=== PATIENT | female | born 1945 | race Hispanic/Latino ===

== ENCOUNTER 2018-06-20 19:23 | Emergency (ER) | payer MEDICARE ==
[~2018-06-20] VITALS: Ht 157.5 cm; Wt 83.9 kg
--- OUTSIDE RECORDS SUMMARY | 2018-06-20 19:26 | XMS REPORT | Clinical Summary ---
Author Author [facility] Address Unknown Phone Unavailable Care Team Providers Care Child Care Group Leader Name Role Phone Tito Wade MD PCP Unavailable Allergies Comments Active Allergy Reactions Severity Noted Date Clindamycin Itching Medium 11/08/2014 Dizzy Levofloxacin Other (See High 11/08/2014 Comments) Medications End Date Status Medication Sig Dispensed Refills Start Date Active metFORMIN (GLUCOPHAGE) Take 1,000 mg 0 1000 MG tablet by mouth 2 (two) times daily with breakfast and dinner. Active lisinopril Take 20 mg by 0 (PRINIVIL,ZESTRIL) 20 MG mouth daily. tablet Active glipiZIDE (GLUCOTROL) 5 Take 10 mg by 0 MG tablet mouth daily . Active simvastatin (ZOCOR) 40 MG Take 40 mg by 0 tablet mouth nightly. Active insulin glargine (LANTUS) Inject 15 0 100 unit/mL injection Units subcutaneousl y nightly Use as directed . Active omeprazole (PRILOSEC) 20 Take 20 mg by 0 MG capsule mouth daily. Active insulin lispro (HUMALOG) Inject 5 0 100 unit/mL injection Units subcutaneousl y 3 (three) times daily before meals. Active pen needle, diabetic 31 USE 2 PER DAY 0 gauge x 3/16" Ndle DIRECTED. 6 Active fexofenadine (VANI) 1 tablet. 0 180 MG tablet 6 Active blood sugar diagnostic Check blood 0 Strp sugar twice a 5 day. Active dnagjrjn-mpkf-dteanow Take by 0 gluconat (CENTRUM) 9 mg mouth. iron/15 mL Liqd liquid Active levothyroxine (SYNTHROID, TAKE 1 TABLET 0 LEVOTHROID) 50 MCG tablet BY MOUTH 6 EVERY MORNING ON AN EMPTY STOMACH 1 HOUR PRIOR TO BREAKFAST. Active magnesium oxide 500 mg 1 tablet. 0 Tab 6 Active MULTIVITS,CA,MINERALS/IRO 1 tab daily. 0 N/FA (ONE-A-DAY WOMENS FORMULA ORAL) Active ranitidine (ZANTAC) 300 300 mg. 0 MG tablet 6 Active glipiZIDE (GLUCOTROL XL) TAKE 1 TABLET 0 10 MG 24 hr tablet EVERY MORNING 6 WITH BREAKFAST FOR DIABETES. Active insulin lispro (HUMALOG) 5 Units. 0 100 unit/mL InPn 5 Active insulin glargine 100 INJECT 40 0 unit/mL (3 mL) InPn UNITS UNDER 5 SKIN EVERY NIGHT. MAY INCREASE DOSE DIRECTED BY DOCTOR. MAX DOSE: 100 UNITS. Active lisinopril TAKE 1 TABLET 0 (PRINIVIL,ZESTRIL) 10 MG BY MOUTH 6 tablet DAILY FOR HYPERTENSION. Active metFORMIN (GLUCOPHAGE) TAKE 1 TABLET 0 1000 MG tablet BY MOUTH 6 TWICE A DAY WITH MEALS. Active simvastatin (ZOCOR) 40 MG TAKE 1 TABLET 0 tablet BY MOUTH 6 EVERY DAY AT 5:00 PM. Active Problems Problem Noted Date Kidney stone 11/08/2014 UTI (urinary tract infection) 11/08/2014 Acute kidney insufficiency 11/08/2014 HTN (hypertension) 11/08/2014 Diabetes mellitus, type II 11/08/2014 Hyperlipidemia, mixed 11/08/2014 OAB (overactive bladder) 11/08/2014 Chronic kidney disease (CKD), stage III (moderate) 01/12/2012 Absence of kidney 06/10/2010 Family History Medical History Relation Name Comments Cancer Mother pancreatic Cancer Sister colon Relation Name Status Comments Mother Sister Sister Social History Date Tobacco Use Types Packs/Day Years Used Never Smoker Alcohol Use Drinks/Week oz/Week Comments No Sex Assigned at Date Recorded Not on file Industry Job Start Date Occupation Not on file Not on file Not on file Travel End Travel History Travel Start No recent travel history available. Last Filed Vital Signs Not on file Plan of Treatment Not on file Implants Device Identifier Shelf Expiration Date Model / Serial / Lot Implanted Type Area Manufactur er 08/29/2016 [id number] / / [id number] Stent,Uret F/G Contour Injection Uro Stent N/A: Ureter [employer] 6.0/24 - [id number] [employer]ENT[employer] Implanted: Qty: 1 on 11/09/2014 by Art Parra MD 05/29/2016 [id number] / / [id number] Stent,Uret F/G Contour Injection Uro Stent Left: Ureter [employer] 6.0/22 - [id number] SCIENTIFIC Implanted: Qty: 1 on 11/17/2014 by Randell Giles MD Results Not on fileafter 06/19/2017 Insurance Payer Benefit Subscriber ID Type Phone Address Plan / Group [employer] K[employer]ARE xxxxxxxxxxx MEDICARE ADV AETNA - MGD CARE AETNA xxxxxxxxxx Comm INDEMNITY NON CONTR Advance Directives For more information, please contact: [facility] [address] [place] [address] Date Inactivated Comments Code Status Date Activated 11/10/2014 5:35 PM Full Code 11/08/2014 9:04 PM This code status was determined by: Patient
[2018-06-20] MEDS ORDERED: TETANUS/DIPHTHERIA TOX ADULT 0.5 ML SYR IM ONE (19:45)
--- NOTE | 2018-06-20 21:36 | Diagnostic Imaging Report ---
History: Trauma, fall. Comparison studies: None Technique: Axial images were obtained through the cervical region.. Coronal and sagittal images reconstructed from the axial data. Dose modulation, iterative reconstruction, and/or weight based adjustment of the mA/kV was utilized to reduce the radiation dose to as low as reasonably achievable. Intravenous contrast: None Findings: Fractures: None. Soft tissue injuries: None. Atlantoaxial articulation: Intact. Alignment: Loss of normal cervical lordosis is either positional or due to muscle spasm. No scoliosis. Cervicomedullary junction: No abnormalities. The foramen magnum is patent. Soft tissues: Incidental 1.9 x 1.4 cm hypodense nodule in left lobe of thyroid gland. Vertebrae: No fractures, infection or neoplasm. Degenerative changes: Moderate degenerative changes in the anterior atlantodental joint. C5-C6: Mild left foraminal stenosis due to facet and uncovertebral arthrosis. C6-C7: Posterior disc osteophyte complex without significant canal stenosis. C7-T1: Moderate to severe left foraminal stenosis due to facet and uncovertebral arthrosis. IMPRESSION: 1. No acute cervical spine fracture or dislocation. Loss of normal cervical lordosis is either positional or due to muscle spasm. 2. Ligament, spinal cord and or vascular abnormalities cannot be excluded on the basis of this examination. 3. Cervical spondylosis as detailed above. Signed by: Dr. Kayli Navarro M.D. on 06/20/2018 9:33 PM
--- NOTE | 2018-06-20 21:44 | Diagnostic Imaging Report ---
Left complete knee. CPT CODE: 66894. INDICATION: Fall COMPARISON: None FINDINGS: No evidence of acute fracture or dislocation. Mild narrowing of the medial and lateral compartments with bilateral chondrocalcinosis. Mild prominence of the tibial spines. The patella is intact and normally situated. No joint effusion. Vascular calcifications throughout the arterial structures. IMPRESSION: No acute traumatic pathology. Degenerative changes and chondrocalcinosis as described above. Signed by: Dr. Angela Otero MD on 06/20/2018 9:41 PM
--- NOTE | 2018-06-20 21:45 | Diagnostic Imaging Report ---
Shoulder complete CPT code: 11117 Indication: Fall. Technique: Internal, external and Y-view of left shoulder obtained. Comparison: None. Findings: There is no current dislocation. No evidence of fracture involving humeral head. Visualized proximal shaft is intact. The clavicle is intact. The clavicle and acromion are properly aligned. No fracture evident involving the visualized portion of the scapula. No significant degenerative changes. Visualized chest demonstrates no evidence of rib fracture. The heart is enlarged. The aorta is tortuous. IMPRESSION: No evidence of acute fracture or dislocation involving the shoulder. Signed by: Dr. Angela Otero MD on 06/20/2018 9:42 PM
--- NOTE | 2018-06-20 22:28 | Diagnostic Imaging Report ---
EXAMINATION: Head CT without contrast. HISTORY:Trauma, fall. COMPARISON:None. TECHNIQUE: Multidetector axial images were obtained from the foramen magnum to the vertex without contrast. The images were reconstructed using brain and bone algorithms. Thin section brain images were reformatted into coronal and sagittal planes. Dose modulation, iterative reconstruction, and/or weight based adjustment of the mA/kV was utilized to reduce the radiation dose to as low as reasonably achievable. Intravenous contrast: None IMAGE QUALITY: Acceptable. FINDINGS: Skull/scalp: Mild left parietal scalp edema/hematoma. No soft tissue emphysema or radiopaque foreign body. No acute depressed or displaced calvarial fracture. Parenchyma: Nonspecific few, scattered supratentorial white matter hypodensity are likely related to small vessel ischemic changes. No acute hemorrhage, mass or acute major vascular territorial infarct. Arteries: No density suggestive of thrombosis. Dural sinuses: No abnormal density suggestive of thrombosis. Ventricles: Mild compensated dilatation due to volume loss. No hydrocephalus. Extra-axial spaces: No abnormal density. Brain volume: Generalized age-related cerebral volume loss. Craniocervical junction: No mass, Chiari malformation, or basilar invagination. Sella: No mass. Paranasal/mastoid sinuses: Imaged portions unremarkable. IMPRESSION: 1. Mild left parietal scalp soft tissue edema/hematoma. No acute fracture. 2. No acute posttraumatic intracranial abnormality. 3. Generalized age-related cerebral volume loss and minimal supratentorial white matter microvascular ischemic changes. Signed by: Dr. Kayli Navarro M.D. on 06/20/2018 10:25 PM
== END 2018-06-20 23:39 | disposition home or self-care (01) ==
LOC: FSED 19:23
DX: S00.83XA Contusion of other part of head, initial encounter (principal); S16.1XXA Strain of muscle, fascia and tendon at neck level, initial encounter; M25.512 Pain in left shoulder; M25.562 Pain in left knee; W01.0XXA Fall on same level from slipping, tripping and stumbling without subsequent striking against object, initial encounter; Y93.01 Activity, walking, marching and hiking; Y92.008 Other place in unspecified non-institutional (private) residence as the place of occurrence of the external cause; I10 Essential (primary) hypertension; E11.9 Type 2 diabetes mellitus without complications
CPT/HCPCS: 70450; 72125; 90714; 99283

== ENCOUNTER 2021-05-23 19:35 | Inpatient (IN) | payer MEDICARE, OTHER ==
[~2021-05-23] VITALS: Ht 154.9 cm; Wt 86.6 kg
[2021-05-23] MEDS ORDERED: SODIUM CHLORIDE 0.9% 1000ML 1,000 ML IV STA (20:05)
[2021-05-23] MEDS ORDERED: Morphine 4mg Syringe 4 MG/ML INJ IV STA (20:13)
[2021-05-23] MEDS ORDERED: FAMOTIDINE 20 MG/2 ML VIAL IV ONE ×2 (20:15→21:03)
[2021-05-23] MEDS ORDERED: KETOROLAC TROMETHAMINE 30 MG/ML VIAL IV ONE (20:15)
[2021-05-23] MEDS ORDERED: SODIUM CHLORIDE 0.9% 1000ML 1,000 ML ONE ×2 (21:02→22:13)
[2021-05-23] MEDS ORDERED: Morphine 4mg Syringe 4 MG/ML INJ ONE (21:02)
[2021-05-23] MEDS ORDERED: KETOROLAC TROMETHAMINE 30 MG/ML VIAL ONE (21:02)
[2021-05-23] MEDS ORDERED: DEXTROSE 50% SYRINGE 50 ML IV PRN (21:15)
[2021-05-23] MEDS: SODIUM CHLORIDE 0.9% 1000ML 1,000 ML IV SCH (22:04)
[2021-05-24] VITALS (7 sets, daily range): BP systolic 106–155; BP diastolic 36–62
[2021-05-24] MEDS: SODIUM CHLORIDE 0.9% 1000ML 1,000 ML IV SCH ×3 (06:21→21:15)
[2021-05-24 07:11] LABS: BASOPHILS % 0.2 % (0.0-1.0); EOSINOPHILS # (AUTO) 0.1 (0.0-0.4); EOSINOPHILS % 0.7 % (0.0-6.0); HEMOGLOBIN 10.3 g/dL (12.0-16.0); LYMPHOCYTES # (AUTO) 1.6 (1.0-3.2); LYMPHOCYTES % 18.3 % (18.0-39.1); MEAN CORPUSCULAR HEMOGLOBIN 29.3 pg (28-32); MEAN CORPUSCULAR HGB CONC 32.2 g/dL (31-35); MEAN CORPUSCULAR VOLUME 91.2 fL (81-99); MONOCYTES # (AUTO) 1.2 (0.2-0.8); MONOCYTES % 14.2 % (4.4-11.3); NEUTROPHILS # (AUTO) 5.8 (2.1-6.9); NEUTROPHILS % 66.3 % (38.7-80.0); PLATELET COUNT 258 x10e3/uL (140-360); RED BLOOD COUNT 3.51 x10e6/uL (3.6-5.1)
[2021-05-24] MEDS ORDERED: INSULIN REGULAR, HUMAN 100 UNIT/1 ML SQ SCH (07:30)
[2021-05-24] MEDS ORDERED: LEVOTHYROXINE75 MCG PO (07:33)
[2021-05-24] MEDS ORDERED: [UNRECOGNIZED DRUG - OTHER] PO (07:33)
[2021-05-24] MEDS ORDERED: aspirin PO (07:33)
[2021-05-24] MEDS ORDERED: [UNRECOGNIZED DRUG - OTHER] SQ (07:33)
[2021-05-24] MEDS ORDERED: LISINOPRIL2.5 MG PO (07:33)
[2021-05-24] MEDS ORDERED: LASIX10 MG/ML PO (07:33)
[2021-05-24] MEDS ORDERED: GLIPIZIDE ER5 MG PO (07:33)
[2021-05-24] MEDS ORDERED: COREG6.25 MG PO (07:33)
[2021-05-24] MEDS ORDERED: PANTOPRAZOLE SO40 MG PO (07:33)
[2021-05-24] MEDS ORDERED: NOVOLOG100 UNIT/1 SC (07:33)
[2021-05-24] MEDS ORDERED: iron (07:33)
[2021-05-24 07:41] LABS: ANION GAP 14.4 mmol/L (8-16); CALCIUM 7.6 mg/dL (8.4-10.2); CREATININE, SERUM 2.57 mg/dL (0.57-1.11); POTASSIUM 3.4 mmol/L (3.5-5.1)
[2021-05-24] MEDS ORDERED: CEFTRIAXONE 1 GM in SODIUM CHLORIDE 0.9% 50ML 50 ML IV SCH (09:30)
[2021-05-24] MEDS ORDERED: DEXTROSE 50% SYRINGE 50 ML IV PRN (09:30)
[2021-05-24] MEDS: INSULIN LISPRO 100 UNIT/1 ML 3ML VIAL SQ SCH ×5 (11:30→21:00)
[2021-05-24] MEDS: CEFTRIAXONE 1 GM in SODIUM CHLORIDE 0.9% 50ML 50 ML IV SCH (12:00)
[2021-05-24 15:21] LABS: CLARITY,URINE CLEAR (CLEAR); COLOR,URINE YELLOW (YELLOW); LEUKOCYTE ESTERASE ,URINE NEGATIVE (NEGATIVE); NITRITE,URINE NEGATIVE (NEGATIVE); PROTEIN,URINE DIPSTICK 1+ (NEGATIVE)
[2021-05-24 15:22] LABS: KETONES,URINE NEGATIVE (NEGATIVE); URINE UROBILINOGEN 0.2 mg/dL (0.2 - 1)
[2021-05-24 15:33] LABS: BACTERIA,URINE MODERATE /HPF; EPITHELIAL CELLS,URINE FEW /LPF; WBC,URINE (MAN) 0-5 /HPF (0-5)
[2021-05-24] MEDS: CARVEDILOL 3.125 MG TAB PO SCH (17:00)
[2021-05-24] MEDS: SODIUM BICARBONATE 650 MG TAB PO SCH (21:00)
[2021-05-25] MEDS: SODIUM CHLORIDE 0.9% 1000ML 1,000 ML IV SCH ×2 (05:15→14:20)
[2021-05-25 05:50] VITALS: BP 148/55
[2021-05-25] MEDS: LEVOTHYROXINE SODIUM 75 MCG TAB PO SCH (06:13)
[2021-05-25 06:14] LABS: BASOPHILS % 0.1 % (0.0-1.0); EOSINOPHILS # (AUTO) 0.1 (0.0-0.4); EOSINOPHILS % 0.7 % (0.0-6.0); HEMATOCRIT 29.9 % (34.2-44.1); HEMOGLOBIN 9.7 g/dL (12.0-16.0); LYMPHOCYTES # (AUTO) 1.6 (1.0-3.2); MEAN CORPUSCULAR HEMOGLOBIN 29.5 pg (28-32); MEAN CORPUSCULAR HGB CONC 32.4 g/dL (31-35); MEAN CORPUSCULAR VOLUME 90.9 fL (81-99); MONOCYTES # (AUTO) 0.9 (0.2-0.8); MONOCYTES % 10.3 % (4.4-11.3); NEUTROPHILS # (AUTO) 6.3 (2.1-6.9); NEUTROPHILS % 70.6 % (38.7-80.0); PLATELET COUNT 282 x10e3/uL (140-360); RED BLOOD COUNT 3.29 x10e6/uL (3.6-5.1)
[2021-05-25 06:39] LABS: ANION GAP 11.6 mmol/L (8-16); CALCIUM 8.1 mg/dL (8.4-10.2); CREATININE, SERUM 1.73 mg/dL (0.57-1.11); POTASSIUM 3.6 mmol/L (3.5-5.1)
[2021-05-25 07:06] LABS: MAGNESIUM 1.5 MG/DL (1.3-2.1); PHOSPHORUS 4.2 MG/DL (2.3-4.7)
[2021-05-25 07:26] LABS: THYROID STIMULATING HORMONE 1.574 uIU/mL (0.350-4.940)
[2021-05-25] MEDS: INSULIN LISPRO 100 UNIT/1 ML 3ML VIAL SQ SCH ×7 (07:30→21:00)
[2021-05-25 08:00] VITALS: BP 124/56
[2021-05-25 08:30] VITALS: BP 124/56
[2021-05-25] MEDS: PANTOPRAZOLE SOD 40 MG TABEC PO SCH (09:00)
[2021-05-25] MEDS: SODIUM BICARBONATE 650 MG TAB PO SCH ×2 (09:07→16:56)
[2021-05-25] MEDS: CARVEDILOL 3.125 MG TAB PO SCH ×2 (09:07→16:55)
[2021-05-25 11:48] VITALS: BP 142/48
[2021-05-25] MEDS: CEFTRIAXONE 1 GM in SODIUM CHLORIDE 0.9% 50ML 50 ML IV SCH (12:00)
[2021-05-25 15:53] VITALS: BP 154/50
[2021-05-25] MEDS: ACETAMINOPHEN 325 MG TAB PO PRN (16:45)
[2021-05-25 20:00] VITALS: BP 142/66
[2021-05-26] VITALS: BP 158/51
[2021-05-26 04:00] VITALS: BP 151/57
[2021-05-26] MEDS: LEVOTHYROXINE SODIUM 75 MCG TAB PO SCH (05:28)
[2021-05-26] MEDS: SODIUM CHLORIDE 0.9% 1000ML 1,000 ML IV SCH (05:35)
[2021-05-26 07:17] LABS: ANION GAP 8.7 mmol/L (8-16); CALCIUM 8.3 mg/dL (8.4-10.2); CREATININE, SERUM 1.23 mg/dL (0.57-1.11); POTASSIUM 3.7 mmol/L (3.5-5.1)
[2021-05-26] MEDS: INSULIN LISPRO 100 UNIT/1 ML 3ML VIAL SQ SCH ×4 (07:30→11:30)
[2021-05-26 07:50] VITALS: BP 167/59
[2021-05-26 08:00] VITALS: BP 169/59
[2021-05-26] MEDS: CARVEDILOL 3.125 MG TAB PO SCH (09:00)
[2021-05-26] MEDS: SODIUM BICARBONATE 650 MG TAB PO SCH (09:00)
[2021-05-26] MEDS: PANTOPRAZOLE SOD 40 MG TABEC PO SCH (09:00)
[2021-05-26] MEDS: ACETAMINOPHEN 325 MG TAB PO PRN (09:15)
[2021-05-26] MEDS ORDERED: ONDANSETRON ODT4 MG PO (10:55)
[2021-05-26] MEDS ORDERED: KEFLEX125 MG/5 M PO ×2 (10:56→10:58)
[2021-05-26 11:40] VITALS: BP 156/55
[2021-05-26] MEDS: CEFTRIAXONE 1 GM in SODIUM CHLORIDE 0.9% 50ML 50 ML IV SCH (11:45)
== END 2021-05-26 14:25 | disposition home or self-care (01) | DRG 391 ==
LOC: FSED 19:40 → ERHOLD 21:13 → MED/SURG3 05-24 00:54 → OBSVTOIN 05-24 09:30
PROVIDERS: ADMIT Internal Medicine; ATTEND Internal Medicine
DX: A05.9 Bacterial foodborne intoxication, unspecified (principal); N17.0 Acute kidney failure with tubular necrosis; N39.0 Urinary tract infection, site not specified; E87.2 Acidosis; E86.0 Dehydration; I12.9 Hypertensive chronic kidney disease with stage 1 through stage 4 chronic kidney disease, or unspecified chronic kidney disease; I16.0 Hypertensive urgency; E87.6 Hypokalemia; Z20.822 Contact with and (suspected) exposure to COVID-19; Z79.899 Other long term (current) drug therapy; M10.9 Gout, unspecified; N18.30 Chronic kidney disease, stage 3 unspecified; Z79.4 Long term (current) use of insulin
CPT/HCPCS: 36415; 76770; 80048; 80053; 81001; 81003; 82948; 83735; 84100; 84443; 85025; 87086; 96374; 96375; 96376; 99251; 99284; G0378; J0696; J1817; J1885; J2270; J7030; U0002

== ENCOUNTER 2021-11-29 10:06 | Emergency (ER) | payer MEDICARE, OTHER ==
[~2021-11-29] VITALS: Ht 154.9 cm; Wt 85.8 kg
[~2021-11-29 10:06] MED LIST: COREG6.25 MG PO; GLIPIZIDE ER5 MG PO; KEFLEX125 MG/5 M PO; LASIX10 MG/ML PO; LEVOTHYROXINE75 MCG PO; LISINOPRIL2.5 MG PO; NOVOLOG100 UNIT/1 SC; ONDANSETRON ODT4 MG PO; PANTOPRAZOLE SO40 MG PO; [UNRECOGNIZED DRUG - OTHER] PO; [UNRECOGNIZED DRUG - OTHER] SQ; aspirin PO; iron
[2021-11-29] MEDS ORDERED: SODIUM CHLORIDE 0.9% 1000ML 1,000 ML IV SCH (11:45)
[2021-11-29] MEDS ORDERED: SODIUM CHLORIDE 0.9% 1000ML 1,000 ML ONE (12:07)
[2021-11-29] MEDS ORDERED: KETOROLAC TROMETHAMINE 30 MG/ML VIAL IV STA (13:15)
[2021-11-29] MEDS ORDERED: VITAMIN D250 MCG PO (13:24)
[2021-11-29] MEDS ORDERED: FEROSUL325 MG PO (13:24)
[2021-11-29] MEDS ORDERED: NOVOLOG100 UNIT/1 SC (13:24)
[2021-11-29] MEDS ORDERED: FUROSEMIDE40 MG PO (13:24)
[2021-11-29] MEDS ORDERED: FARXIGA10 MG (13:24)
[2021-11-29] MEDS ORDERED: SIMVASTATIN40 MG PO (13:24)
[2021-11-29] MEDS ORDERED: ASPIRIN EC81 MG PO (13:24)
[2021-11-29] MEDS ORDERED: LEVEMIR100 UNIT/1 (13:24)
[2021-11-29] MEDS ORDERED: KETOROLAC TROMETHAMINE 30 MG/ML VIAL ONE (13:45)
== END 2021-11-29 14:20 | disposition home or self-care (01) ==
LOC: FSED 10:43
DX: R10.11 Right upper quadrant pain (principal); I12.9 Hypertensive chronic kidney disease with stage 1 through stage 4 chronic kidney disease, or unspecified chronic kidney disease; E11.22 Type 2 diabetes mellitus with diabetic chronic kidney disease; N18.9 Chronic kidney disease, unspecified; D64.9 Anemia, unspecified; E03.9 Hypothyroidism, unspecified; K21.9 Gastro-esophageal reflux disease without esophagitis; Z20.822 Contact with and (suspected) exposure to COVID-19
CPT/HCPCS: 74176; 80048; 80076; 81003; 85025; 96374; 99284; J1885; J7030; U0002

== ENCOUNTER 2023-03-27 06:02 | Inpatient (IN) | payer MEDICARE ==
[~2023-03-27] VITALS: Ht 154.9 cm; Wt 73.5 kg
[~2023-03-27 06:02] MED LIST changes: +ASPIRIN EC81 MG PO; +FARXIGA10 MG; +FEROSUL325 MG PO; +FUROSEMIDE40 MG PO; +LEVEMIR100 UNIT/1; +SIMVASTATIN40 MG PO; +VITAMIN D250 MCG PO
[2023-03-27 06:52] LABS: BASOPHILS % 0.2 % (0.0-1.0); EOSINOPHILS # (AUTO) 0.2 (0.0-0.4); EOSINOPHILS % 1.4 % (0.0-6.0); HEMATOCRIT 29.7 % (34.2-44.1); HEMOGLOBIN 9.4 g/dL (12.0-16.0); LYMPHOCYTES # (AUTO) 1.5 (1.0-3.2); LYMPHOCYTES % 12.3 % (18.0-39.1); MEAN CORPUSCULAR HEMOGLOBIN 28.7 pg (28-32); MEAN CORPUSCULAR HGB CONC 31.6 g/dL (31-35); MEAN CORPUSCULAR VOLUME 90.5 fL (81-99); MONOCYTES # (AUTO) 0.8 (0.2-0.8); MONOCYTES % 6.4 % (4.4-11.3); NEUTROPHILS # (AUTO) 9.5 (2.1-6.9); NEUTROPHILS % 79.2 % (38.7-80.0); PLATELET COUNT 224 x10e3/uL (140-360); RED BLOOD COUNT 3.28 x10e6/uL (3.6-5.1); RED CELL DISTRIBUTION WIDTH 13.1 % (11.7-14.4); WHITE BLOOD COUNT 11.94 x10e3/uL (4.8-10.8)
[2023-03-27 07:27] LABS: ALBUMIN 3.3 g/dL (3.5-5.0); ALBUMIN/GLOBULIN RATIO 0.9 (0.8-2.0); ANION GAP 13.6 mmol/L (8-16); BILIRUBIN,TOTAL 0.4 mg/dL (0.2-1.2); CALCIUM 9.1 mg/dL (8.4-10.2); CREATININE, SERUM 2.61 mg/dL (0.57-1.11); POTASSIUM 3.6 mmol/L (3.5-5.1)
[2023-03-27] MEDS: SODIUM CHLORIDE 0.9% 1000ML 1,000 ML IV ONE (10:28)
[2023-03-27] MEDS ORDERED: ONDANSETRON HCL INJ 2MG/ML 2ML 2 MG/ML VIAL IV PRN (11:00)
[2023-03-27] MEDS: SODIUM CHLORIDE 0.9% 1000ML 1,000 ML IV SCH (12:03)
[2023-03-27 14:59] VITALS: BP 173/63; PULSE 77; RESP 16; TEMP 98.5; O2SAT 99
[2023-03-27 15:02] VITALS: BP 173/63; PULSE 77; RESP 16; TEMP 98.5; O2SAT 99
[2023-03-27] MEDS ORDERED: LANTUS 3ML100 UNITS/ PO (17:33)
[2023-03-27] MEDS ORDERED: ALLOPURINOL100 MG PO (17:34)
[2023-03-27] MEDS ORDERED: HYDRALAZINE HCL50 MG PO (17:34)
[2023-03-27] MEDS ORDERED: GABAPENTIN300 MG PO (17:35)
[2023-03-27] MEDS ORDERED: HYDRALAZINE HCL 20 MG/ML VIAL IV PRN (19:45)
[2023-03-27] MEDS ORDERED: CARVEDILOL 3.125 MG TAB PO SCH (19:45)
[2023-03-27] MEDS ORDERED: DEXTROSE 50% SYRINGE 50 ML IV PRN (19:45)
[2023-03-27 20:00] VITALS: BP 162/55; PULSE 71; RESP 18; TEMP 99; O2SAT 99
[2023-03-27] MEDS ORDERED: GABAPENTIN 300 MG CAP PO SCH (21:00)
[2023-03-27] MEDS: INSULIN LISPRO 100 UNIT/1 ML 3ML VIAL SQ SCH (22:51)
[2023-03-27] MEDS: INSULIN GLARGINE 100 UNITS/ML VIAL SQ SCH (22:52)
[2023-03-27] MEDS: GABAPENTIN 100 MG CAP PO SCH (22:56)
[2023-03-27] MEDS: HYDRALAZINE HCL 25 MG TAB PO SCH (22:57)
[2023-03-27] MEDS: SIMVASTATIN 40 MG TAB PO SCH (22:58)
[2023-03-27 23:07] LABS: CLARITY,URINE CLEAR (CLEAR); COLOR,URINE YELLOW (YELLOW)
[2023-03-27 23:08] LABS: BILIRUBIN,URINE NEGATIVE (NEGATIVE); GLUCOSE, URINE 500 (NEGATIVE); KETONES,URINE TRACE (NEGATIVE); LEUKOCYTE ESTERASE ,URINE NEGATIVE (NEGATIVE); NITRITE,URINE NEGATIVE (NEGATIVE); PH,URINE 5.5 (5 - 7); PROTEIN,URINE DIPSTICK 2+ (NEGATIVE); URINE UROBILINOGEN 0.2 mg/dL (0.2 - 1)
[2023-03-27 23:20] LABS: BACTERIA,URINE MANY /HPF; EPITHELIAL CELLS,URINE FEW /LPF
[2023-03-28] VITALS (7 sets, daily range): BP systolic 141–186; BP diastolic 51–69; PULSE 66–71; RESP 18–20; TEMP 97.7–98.6; O2SAT 98–100
[2023-03-28] MEDS: PANTOPRAZOLE SOD 40 MG TABEC PO SCH (04:59)
[2023-03-28 05:57] LABS: MAGNESIUM 1.9 MG/DL (1.3-2.1)
[2023-03-28 06:17] LABS: THYROID STIMULATING HORMONE 0.306 uIU/mL (0.350-4.940)
[2023-03-28 06:21] LABS: ALBUMIN 2.9 g/dL (3.5-5.0); ALBUMIN/GLOBULIN RATIO 0.9 (0.8-2.0); ANION GAP 13.7 mmol/L (8-16); BILIRUBIN,TOTAL 0.4 mg/dL (0.2-1.2); CALCIUM 8.5 mg/dL (8.4-10.2); CREATININE, SERUM 2.39 mg/dL (0.57-1.11); POTASSIUM 3.7 mmol/L (3.5-5.1); TOTAL PROTEIN 6.1 g/dL (6.5-8.1)
[2023-03-28] MEDS: FERROUS SULFATE 325 MG TAB PO SCH (08:41)
[2023-03-28] MEDS: LEVOTHYROXINE SODIUM 100 MCG TAB PO SCH (08:42)
[2023-03-28] MEDS: CARVEDILOL 3.125 MG TAB PO SCH (08:42)
[2023-03-28] MEDS: ALLOPURINOL 100 MG TAB PO SCH (08:42)
[2023-03-28 09:28] LABS: BASOPHILS % 0.6 % (0.0-1.0); EOSINOPHILS # (AUTO) 0.1 (0.0-0.4); EOSINOPHILS % 1.9 % (0.0-6.0); HEMATOCRIT 27.8 % (34.2-44.1); HEMOGLOBIN 8.4 g/dL (12.0-16.0); LYMPHOCYTES % 31.6 % (18.0-39.1); MEAN CORPUSCULAR HEMOGLOBIN 28.3 pg (28-32); MEAN CORPUSCULAR HGB CONC 30.2 g/dL (31-35); MEAN CORPUSCULAR VOLUME 93.6 fL (81-99); MONOCYTES # (AUTO) 0.6 (0.2-0.8); MONOCYTES % 8.7 % (4.4-11.3); NEUTROPHILS # (AUTO) 3.7 (2.1-6.9); PLATELET COUNT 198 x10e3/uL (140-360); RED BLOOD COUNT 2.97 x10e6/uL (3.6-5.1); RED CELL DISTRIBUTION WIDTH 13.2 % (11.7-14.4); WHITE BLOOD COUNT 6.42 x10e3/uL (4.8-10.8)
[2023-03-28] MEDS: INSULIN LISPRO 100 UNIT/1 ML 3ML VIAL SQ SCH ×2 (16:30→16:49)
[2023-03-29] VITALS (7 sets, daily range): BP systolic 128–165; BP diastolic 42–61; PULSE 62–74; RESP 16–18; TEMP 98.3–99.3; O2SAT 98–100
[2023-03-29 08:35] LABS: CREATININE,URINE RANDOM 53.35 mg/dL (47-110)
[2023-03-29] MEDS: INSULIN LISPRO 100 UNIT/1 ML 3ML VIAL SQ SCH (17:37)
[2023-03-29] MEDS: ACETAMINOPHEN 325 MG TAB PO PRN (20:36)
[2023-03-29] MEDS: ACETAMINOPHEN 325 MG TAB ONE (22:19)
[2023-03-30] VITALS: BP 122/49; PULSE 63; RESP 20; TEMP 98.7; O2SAT 100
[2023-03-30 04:00] VITALS: BP 144/49; PULSE 68; RESP 18; TEMP 98.5; O2SAT 100
[2023-03-30 08:11] VITALS: BP 155/52; PULSE 72; RESP 18; TEMP 98.6; O2SAT 100
[2023-03-30 08:30] VITALS: BP 155/52; PULSE 72; RESP 18; TEMP 98.6; O2SAT 100
[2023-03-30 08:50] VITALS: BP 155/52; PULSE 72
[2023-03-30 09:02] LABS: ANION GAP 13.1 mmol/L (8-16); CREATININE, SERUM 1.7 mg/dL (0.57-1.11); POTASSIUM 4.1 mmol/L (3.5-5.1)
== END 2023-03-30 11:11 | disposition home or self-care (01) | DRG 638 ==
LOC: ER 06:10 → ERHOLD 10:56 → MED/SURG 14:04 → OBSVTOIN 19:40
PROVIDERS: ADMIT Internal Medicine; ATTEND Internal Medicine
DX: E11.649 Type 2 diabetes mellitus with hypoglycemia without coma (principal); N39.0 Urinary tract infection, site not specified; E11.22 Type 2 diabetes mellitus with diabetic chronic kidney disease; I12.9 Hypertensive chronic kidney disease with stage 1 through stage 4 chronic kidney disease, or unspecified chronic kidney disease; N18.4 Chronic kidney disease, stage 4 (severe); N17.9 Acute kidney failure, unspecified; I16.0 Hypertensive urgency; D63.1 Anemia in chronic kidney disease; E86.0 Dehydration; E11.40 Type 2 diabetes mellitus with diabetic neuropathy, unspecified; Z79.4 Long term (current) use of insulin; Z79.84 Long term (current) use of oral hypoglycemic drugs; E03.9 Hypothyroidism, unspecified; Z90.5 Acquired absence of kidney; Z87.442 Personal history of urinary calculi; Z79.899 Other long term (current) drug therapy; Z11.52 Encounter for screening for COVID-19
CPT/HCPCS: 36415; 76770; 80048; 80053; 81001; 82570; 82948; 83036; 83735; 84100; 84300; 84439; 84443; 85025; 99284; J0696; J1815; J7030; U0002

== ENCOUNTER 2024-03-06 12:41 | Emergency (ER) | payer MEDICARE ==
[~2024-03-06] VITALS: Ht 154.9 cm; Wt 73.5 kg
[~2024-03-06 12:41] MED LIST changes: +ALLOPURINOL100 MG PO; +GABAPENTIN300 MG PO; +HYDRALAZINE HCL50 MG PO; +LANTUS 3ML100 UNITS/ PO
[2024-03-06 12:49] VITALS: PULSE 82; RESP 17; TEMP 98.8; O2SAT 98
[2024-03-06] MEDS: HYDROCODONE/APAP 5MG-325MG TAB PO ONE (13:57)
[2024-03-06] MEDS ORDERED: MEDROL4 M2 PO (14:55)
== END 2024-03-06 15:06 | disposition home or self-care (01) ==
LOC: ER 12:46
DX: S62.344A Nondisplaced fracture of base of fourth metacarpal bone, right hand, initial encounter for closed fracture (principal); M65.88 Other synovitis and tenosynovitis, other site; X50.1XXA Overexertion from prolonged static or awkward postures, initial encounter; Y93.89 Activity, other specified; Y92.89 Other specified places as the place of occurrence of the external cause; I12.9 Hypertensive chronic kidney disease with stage 1 through stage 4 chronic kidney disease, or unspecified chronic kidney disease; E11.22 Type 2 diabetes mellitus with diabetic chronic kidney disease; N18.9 Chronic kidney disease, unspecified
CPT/HCPCS: 99283

== ENCOUNTER 2024-03-15 13:29 | Inpatient (IN) | payer MEDICARE ==
[~2024-03-15] VITALS: Ht 154.9 cm; Wt 65.5 kg
[~2024-03-15 13:29] MED LIST changes: +MEDROL4 M2 PO
[2024-03-15 14:01] LABS: BASOPHILS % 0.1 % (0.0-1.0); HEMATOCRIT 32.3 % (34.2-44.1); HEMOGLOBIN 9.5 g/dL (12.0-16.0); LYMPHOCYTES # (AUTO) 1.4 (1.0-3.2); LYMPHOCYTES % 8.8 % (18.0-39.1); MEAN CORPUSCULAR HGB CONC 29.4 g/dL (31-35); MEAN CORPUSCULAR VOLUME 98.5 fL (81-99); MONOCYTES # (AUTO) 0.8 (0.2-0.8); MONOCYTES % 4.9 % (4.4-11.3); NEUTROPHILS # (AUTO) 13.4 (2.1-6.9); NEUTROPHILS % 85.6 % (38.7-80.0); PLATELET COUNT 304 x10e3/uL (140-360); RED BLOOD COUNT 3.28 x10e6/uL (3.6-5.1); RED CELL DISTRIBUTION WIDTH 13.3 % (11.7-14.4); WHITE BLOOD COUNT 15.67 x10e3/uL (4.8-10.8)
[2024-03-15 14:24] LABS: CORONAVIRUS COVID-19 AG NEGATIVE (NEGATIVE); INFLUENZA A AG NEGATIVE (NEGATIVE); INFLUENZA B AG NEGATIVE (NEGATIVE)
[2024-03-15 14:29] LABS: ALBUMIN 1.7 g/dL (3.5-5.0); ALBUMIN/GLOBULIN RATIO 0.4 (0.8-2.0); ANION GAP 19.3 mmol/L (8-16); BILIRUBIN,TOTAL 0.3 mg/dL (0.2-1.2); CALCIUM 8.5 mg/dL (8.4-10.2); CREATININE, SERUM 3.78 mg/dL (0.57-1.11); POTASSIUM 4.3 mmol/L (3.5-5.1); TOTAL PROTEIN 6.3 g/dL (6.5-8.1)
[2024-03-15 14:30] LABS: MAGNESIUM 1.7 MG/DL (1.3-2.1)
[2024-03-15 14:46] LABS: TROPONIN I 0.067 ng/mL (0-0.300)
[2024-03-15 14:56] LABS: BILIRUBIN,URINE NEGATIVE (NEGATIVE); CLARITY,URINE CLOUDY (CLEAR); COLOR,URINE YELLOW (YELLOW); GLUCOSE, URINE 1+ (NEGATIVE); KETONES,URINE TRACE (NEGATIVE); LEUKOCYTE ESTERASE ,URINE NEGATIVE (NEGATIVE); NITRITE,URINE NEGATIVE (NEGATIVE); PH,URINE 5.5 (5 - 7); PROTEIN,URINE DIPSTICK >=300 (NEGATIVE); URINE UROBILINOGEN 0.2 mg/dL (0.2 - 1)
[2024-03-15 15:00] LABS: BACTERIA,URINE MANY /HPF; RBC,URINE 0-5 /HPF (0-5); WBC,URINE (MAN) 0-5 /HPF (0-5)
[2024-03-15 15:01] LABS: AMORPHOUS SEDIMENT,URINE MODERATE (FEW); EPITHELIAL CELLS,URINE MANY /LPF
[2024-03-15] MEDS: SODIUM CHLORIDE 0.9% 1000ML 1,000 ML IV STA (16:07)
[2024-03-15] MEDS: SODIUM CHLORIDE 0.9% 1000ML 1,000 ML IV SCH (17:11)
[2024-03-15] MEDS: ALBUTEROL/IPRATROPIUM 3 ML NEB NEB PRN (17:21)
[2024-03-15 17:22] VITALS: PULSE 82; RESP 16; O2SAT 96
[2024-03-15 17:31] VITALS: PULSE 79; RESP 16; TEMP 98.4
[2024-03-15 18:37] VITALS: BP 148/87; PULSE 82; RESP 16; TEMP 98.6; O2SAT 99
[2024-03-15 20:00] VITALS: BP 139/50; PULSE 62; RESP 20; TEMP 97.7; O2SAT 92
[2024-03-15] MEDS ORDERED: LEVEMIR100 UNIT/1 SC (23:10)
[2024-03-16] VITALS (10 sets, daily range): BP systolic 117–155; BP diastolic 52–75; PULSE 60–85; RESP 16–20; TEMP 98–98.5; O2SAT 93–100
[2024-03-16 05:54] LABS: BASOPHILS % 0.1 % (0.0-1.0); EOSINOPHILS % 0.1 % (0.0-6.0); HEMATOCRIT 24.3 % (34.2-44.1); LYMPHOCYTES # (AUTO) 1.4 (1.0-3.2); LYMPHOCYTES % 11.1 % (18.0-39.1); MEAN CORPUSCULAR HEMOGLOBIN 28.2 pg (28-32); MEAN CORPUSCULAR HGB CONC 30.5 g/dL (31-35); MEAN CORPUSCULAR VOLUME 92.7 fL (81-99); MONOCYTES # (AUTO) 0.6 (0.2-0.8); MONOCYTES % 5.1 % (4.4-11.3); NEUTROPHILS # (AUTO) 10.2 (2.1-6.9); NEUTROPHILS % 83.1 % (38.7-80.0); PLATELET COUNT 307 x10e3/uL (140-360); RED BLOOD COUNT 2.62 x10e6/uL (3.6-5.1); RED CELL DISTRIBUTION WIDTH 13.4 % (11.7-14.4); WHITE BLOOD COUNT 12.25 x10e3/uL (4.8-10.8)
[2024-03-16 06:13] LABS: HEMOGLOBIN 7.4 g/dL (12.0-16.0)
[2024-03-16 06:31] LABS: ALBUMIN 1.4 g/dL (3.5-5.0); ALBUMIN/GLOBULIN RATIO 0.4 (0.8-2.0); ANION GAP 16.7 mmol/L (8-16); BILIRUBIN,TOTAL 0.3 mg/dL (0.2-1.2); CALCIUM 7.7 mg/dL (8.4-10.2); CREATININE, SERUM 3.68 mg/dL (0.57-1.11); POTASSIUM 3.7 mmol/L (3.5-5.1); TOTAL PROTEIN 5.2 g/dL (6.5-8.1)
[2024-03-16 07:03] LABS: TROPONIN I 0.066 ng/mL (0-0.300)
[2024-03-16] MEDS ORDERED: ALBUTEROL/IPRATROPIUM 3 ML NEB NEB PRN (08:45)
[2024-03-16] MEDS ORDERED: ONDANSETRON HCL INJ 2MG/ML 2ML 2 MG/ML VIAL IV PRN (08:45)
[2024-03-16] MEDS ORDERED: DEXTROSE 50% SYRINGE 50 ML IV PRN (08:45)
[2024-03-16] MEDS ORDERED: HYDRALAZINE HCL 20 MG/ML VIAL IV PRN (08:45)
[2024-03-16] MEDS: HYDRALAZINE HCL 25 MG TAB PO SCH (10:02)
[2024-03-16] MEDS: LEVOTHYROXINE SODIUM 100 MCG TAB PO SCH (10:02)
[2024-03-16] MEDS: PANTOPRAZOLE SOD 40 MG TABEC PO SCH (10:03)
[2024-03-16] MEDS: GABAPENTIN 300 MG CAP PO SCH (10:03)
[2024-03-16] MEDS: ALLOPURINOL 100 MG TAB PO SCH (10:03)
[2024-03-16] MEDS: BENZONATATE 100 MG CAP PO SCH (10:03)
[2024-03-16] MEDS: INSULIN LISPRO 100 UNIT/1 ML 3ML VIAL SQ SCH ×2 (11:54→11:56)
[2024-03-16] MEDS: ALBUTEROL/IPRATROPIUM 3 ML NEB NEB SCH (13:56)
[2024-03-16 15:02] LABS: TROPONIN I 0.058 ng/mL (0-0.300)
[2024-03-16 15:38] LABS: CREATININE, SERUM 3.66 mg/dL (0.57-1.11)
[2024-03-16] MEDS: SODIUM BICARBONATE 8.4% VIAL 150 ML in DEXTROSE 5% 1,000 ML IV SCH (16:53)
[2024-03-16] MEDS: SODIUM BICARBONATE 650 MG TAB PO SCH (16:53)
[2024-03-16] MEDS: SIMVASTATIN 40 MG TAB PO SCH (20:59)
[2024-03-16] MEDS: GABAPENTIN 100 MG CAP PO SCH (21:00)
[2024-03-16] MEDS: INSULIN GLARGINE 100 UNITS/ML VIAL SC SCH (21:06)
[2024-03-17] VITALS (12 sets, daily range): BP systolic 139–169; BP diastolic 58–78; PULSE 65–82; RESP 16–22; TEMP 97.9–98.2; O2SAT 90–100
[2024-03-17 06:37] LABS: MAGNESIUM 1.6 MG/DL (1.3-2.1); PHOSPHORUS 4.4 MG/DL (2.3-4.7)
[2024-03-17 07:01] LABS: THYROID STIMULATING HORMONE 2.404 uIU/mL (0.350-4.940)
[2024-03-17 09:51] LABS: ALBUMIN 1.4 g/dL (3.5-5.0); ANION GAP 14.6 mmol/L (8-16); BILIRUBIN,TOTAL 0.2 mg/dL (0.2-1.2); CALCIUM 7.5 mg/dL (8.4-10.2); CREATININE, SERUM 3.71 mg/dL (0.57-1.11); POTASSIUM 3.6 mmol/L (3.5-5.1)
[2024-03-17 09:52] LABS: ALBUMIN/GLOBULIN RATIO 0.4 (0.8-2.0)
[2024-03-17] MEDS: MAGNESIUM SULFATE 2GM/50ML 50 ML IV ONE (11:37)
[2024-03-17] MEDS: SODIUM CHLORIDE 0.9% 250ML 250 ML ONE (11:42)
[2024-03-17 11:50] LABS: FERRITIN 411.32 ng/mL (4.63-204.00)
[2024-03-17 18:26] LABS: CREATININE,URINE RANDOM 42.55 mg/dL (47-110)
[2024-03-17] MEDS: ACETAMINOPHEN 325 MG TAB PO PRN (18:31)
[2024-03-17 18:46] LABS: TOTAL PROTEIN 24HR, URINE 3886.8 mg/24hr (50-100); TOTAL PROTEIN, URINE 323.9 mg/dL (1-14)
[2024-03-18] VITALS (10 sets, daily range): BP systolic 123–159; BP diastolic 54–86; PULSE 72–110; RESP 16–20; TEMP 98–98.5; O2SAT 93–97
[2024-03-18 06:04] LABS: BASOPHILS % 0.2 % (0.0-1.0); EOSINOPHILS # (AUTO) 0.1 (0.0-0.4); EOSINOPHILS % 1.2 % (0.0-6.0); HEMATOCRIT 26.8 % (34.2-44.1); LYMPHOCYTES # (AUTO) 1.3 (1.0-3.2); LYMPHOCYTES % 15.6 % (18.0-39.1); MEAN CORPUSCULAR HGB CONC 29.9 g/dL (31-35); MEAN CORPUSCULAR VOLUME 97.1 fL (81-99); MONOCYTES # (AUTO) 0.7 (0.2-0.8); MONOCYTES % 7.9 % (4.4-11.3); NEUTROPHILS # (AUTO) 6.3 (2.1-6.9); NEUTROPHILS % 74.2 % (38.7-80.0); PLATELET COUNT 318 x10e3/uL (140-360); RED BLOOD COUNT 2.76 x10e6/uL (3.6-5.1); RED CELL DISTRIBUTION WIDTH 12.8 % (11.7-14.4); WHITE BLOOD COUNT 8.48 x10e3/uL (4.8-10.8)
[2024-03-18 06:19] LABS: ALBUMIN 1.6 g/dL (3.5-5.0); ALBUMIN/GLOBULIN RATIO 0.4 (0.8-2.0); ANION GAP 16.2 mmol/L (8-16); BILIRUBIN,TOTAL 0.3 mg/dL (0.2-1.2); CALCIUM 8.2 mg/dL (8.4-10.2); CREATININE, SERUM 3.37 mg/dL (0.57-1.11); POTASSIUM 4.2 mmol/L (3.5-5.1); TOTAL PROTEIN 5.7 g/dL (6.5-8.1)
[2024-03-18] MEDS: SODIUM CHLORIDE 0.9% 250ML 250 ML IV ONE (20:04)
[2024-03-19] VITALS (11 sets, daily range): BP systolic 120–164; BP diastolic 56–69; PULSE 79–93; RESP 16–21; TEMP 98.2–98.9; O2SAT 92–97
[2024-03-19] MEDS ORDERED: ONDANSETRON HCL 4 MG ORAL DISINTEGRATING TAB PO PRN (16:15)
[2024-03-20] VITALS (10 sets, daily range): BP systolic 155–180; BP diastolic 55–76; PULSE 78–91; RESP 17–20; TEMP 97.9–99.7; O2SAT 93–100
[2024-03-20] MEDS: IRON SUCROSE 100 MG in SODIUM CHLORIDE 0.9% 100 ML IV SCH (12:46)
[2024-03-20] MEDS: EPOETIN ALFA-EPBX 10,000 UNIT/ML VIAL SC ONE (13:49)
[2024-03-20] MEDS: AZITHROMYCIN 250 MG TAB PO SCH (15:36)
[2024-03-21] VITALS (11 sets, daily range): BP systolic 151–190; BP diastolic 52–76; PULSE 68–104; RESP 18–20; TEMP 97.9–99.2; O2SAT 92–100
[2024-03-21 06:14] LABS: BASOPHILS % 0.4 % (0.0-1.0); EOSINOPHILS # (AUTO) 0.1 (0.0-0.4); EOSINOPHILS % 1.5 % (0.0-6.0); HEMATOCRIT 27.3 % (34.2-44.1); LYMPHOCYTES # (AUTO) 1.1 (1.0-3.2); MEAN CORPUSCULAR HEMOGLOBIN 29.1 pg (28-32); MEAN CORPUSCULAR HGB CONC 29.3 g/dL (31-35); MEAN CORPUSCULAR VOLUME 99.3 fL (81-99); MONOCYTES # (AUTO) 0.9 (0.2-0.8); MONOCYTES % 11.1 % (4.4-11.3); NEUTROPHILS # (AUTO) 6.2 (2.1-6.9); NEUTROPHILS % 73.1 % (38.7-80.0); PLATELET COUNT 451 x10e3/uL (140-360); RED BLOOD COUNT 2.75 x10e6/uL (3.6-5.1); RED CELL DISTRIBUTION WIDTH 12.8 % (11.7-14.4); WHITE BLOOD COUNT 8.47 x10e3/uL (4.8-10.8)
[2024-03-21 06:49] LABS: ANION GAP 15.1 mmol/L (8-16); CALCIUM 8.4 mg/dL (8.4-10.2); CREATININE, SERUM 3.1 mg/dL (0.57-1.11); POTASSIUM 4.1 mmol/L (3.5-5.1)
[2024-03-21 08:30] LABS: INR 0.97; PROTHROMBIN TIME 13.5 seconds (11.9-14.5)
[2024-03-21] MEDS ORDERED: LIDOCAINE HCL 1% 30ML-PF VIAL ONE (08:31)
[2024-03-21] MEDS ORDERED: SODIUM CHLORIDE 0.9% 500ML 500 ML ONE (08:31)
[2024-03-21] MEDS ORDERED: HEPARIN SOD (PORCINE) 1000 UNIT/ML SDV ONE ×2 (10:37→10:49)
[2024-03-21] MEDS ORDERED: FENTANYL CITRATE/PF 100MCG/2 ML INJ ONE (10:37)
[2024-03-21] MEDS ORDERED: SODIUM CHLORIDE 0.9% 250ML 250 ML ONE (10:38)
[2024-03-21] MEDS: HYDRALAZINE HCL 100 MG TABLET PO SCH (11:44)
[2024-03-21] MEDS ORDERED: Doxycycline IV 100 MG in SODIUM CHLORIDE 0.9% 100 ML IV SCH (12:00)
[2024-03-21] MEDS: METOPROLOL TARTRATE 25 MG TAB PO SCH (12:28)
[2024-03-21] MEDS ORDERED: HEPARIN SOD (PORCINE) 1000 UNIT/ML SDV IV PRN (15:15)
[2024-03-21] MEDS ORDERED: MANNITOL 25% 12.5GM/50 ML VIAL IV PRN (15:15)
[2024-03-21] MEDS ORDERED: SODIUM CHLORIDE 0.9% 1000ML 2,000 ML IV PRN (15:15)
[2024-03-21] MEDS: Doxycycline IV 100 MG in SODIUM CHLORIDE 0.9% 100 ML IV SCH (17:39)
[2024-03-22] VITALS (11 sets, daily range): BP systolic 117–164; BP diastolic 43–67; PULSE 67–95; RESP 16–20; TEMP 98–99.4; O2SAT 94–100
[2024-03-22] MEDS: SODIUM CHLORIDE 0.9% 1000ML 1,000 ML ONE (12:06)
[2024-03-22] MEDS: MANNITOL 25% 12.5GM/50ML 100 ML ONE (12:06)
[2024-03-22] MEDS: NIFEDIPINE CR 30 MG TAB PO ONE (12:28)
[2024-03-22] MEDS: NIFEDIPINE CR 30 MG TAB ONE (12:31)
[2024-03-22] MEDS: BENZONATATE 100 MG CAP PO PRN (17:56)
[2024-03-23] VITALS (12 sets, daily range): BP systolic 104–133; BP diastolic 44–58; PULSE 68–84; RESP 16–22; TEMP 97–99.1; O2SAT 95–100
[2024-03-23 06:19] LABS: BASOPHILS % 0.3 % (0.0-1.0); EOSINOPHILS # (AUTO) 0.1 (0.0-0.4); EOSINOPHILS % 0.9 % (0.0-6.0); LYMPHOCYTES # (AUTO) 1.2 (1.0-3.2); LYMPHOCYTES % 10.5 % (18.0-39.1); MEAN CORPUSCULAR HEMOGLOBIN 28.5 pg (28-32); MEAN CORPUSCULAR VOLUME 94.9 fL (81-99); MONOCYTES % 8.1 % (4.4-11.3); NEUTROPHILS # (AUTO) 9.3 (2.1-6.9); NEUTROPHILS % 79.5 % (38.7-80.0); PLATELET COUNT 397 x10e3/uL (140-360); RED BLOOD COUNT 2.53 x10e6/uL (3.6-5.1); RED CELL DISTRIBUTION WIDTH 13.1 % (11.7-14.4); WHITE BLOOD COUNT 11.75 x10e3/uL (4.8-10.8)
[2024-03-23 06:23] LABS: HEMOGLOBIN 7.2 g/dL (12.0-16.0)
[2024-03-23 09:21] LABS: CALCIUM 8.6 mg/dL (8.4-10.2)
[2024-03-23] MEDS: NIFEDIPINE CR 30 MG TAB PO SCH (13:07)
[2024-03-24] VITALS (13 sets, daily range): BP systolic 117–146; BP diastolic 43–62; PULSE 55–85; RESP 17–20; TEMP 98–99.1; O2SAT 93–100
[2024-03-24] MEDS: SODIUM CHLORIDE 0.9% 250ML 250 ML IV ONE (01:13)
[2024-03-24 05:40] LABS: BASOPHILS % 0.2 % (0.0-1.0); EOSINOPHILS # (AUTO) 0.1 (0.0-0.4); EOSINOPHILS % 0.6 % (0.0-6.0); HEMATOCRIT 26.3 % (34.2-44.1); HEMOGLOBIN 8.2 g/dL (12.0-16.0); LYMPHOCYTES # (AUTO) 1.1 (1.0-3.2); LYMPHOCYTES % 10.1 % (18.0-39.1); MEAN CORPUSCULAR HGB CONC 31.2 g/dL (31-35); MEAN CORPUSCULAR VOLUME 92.9 fL (81-99); NEUTROPHILS # (AUTO) 8.7 (2.1-6.9); NEUTROPHILS % 79.3 % (38.7-80.0); PLATELET COUNT 319 x10e3/uL (140-360); RED BLOOD COUNT 2.83 x10e6/uL (3.6-5.1); RED CELL DISTRIBUTION WIDTH 14.5 % (11.7-14.4); WHITE BLOOD COUNT 10.91 x10e3/uL (4.8-10.8)
[2024-03-24 06:03] LABS: ANION GAP 13.1 mmol/L (8-16); CALCIUM 8.3 mg/dL (8.4-10.2); CREATININE, SERUM 3.56 mg/dL (0.57-1.11); POTASSIUM 4.1 mmol/L (3.5-5.1)
[2024-03-24 07:14] LABS: HEPATITIS B SURFACE AG (P) NON-REACTIVE
[2024-03-24 07:15] LABS: HEPATITIS B CORE IGM (P) NON-REACTIVE
[2024-03-24 07:16] LABS: HEPATITIS B SURFACE AB QUANT <3.5
[2024-03-24] MEDS: DOXYCYCLINE HYCLATE TABLET 100 MG TAB PO SCH ×2 (17:14→22:58)
[2024-03-25] VITALS (10 sets, daily range): BP systolic 111–120; BP diastolic 45–53; PULSE 65–72; RESP 16–20; TEMP 97.9–98.4; O2SAT 95–100
[2024-03-25] MEDS ORDERED: HEPARIN SOD (PORCINE) 1000 UNIT/ML SDV IV PRN ×2 (18:15)
[2024-03-26] VITALS (13 sets, daily range): BP systolic 113–143; BP diastolic 47–55; PULSE 65–76; RESP 16–21; TEMP 98–98.8; O2SAT 18–100
[2024-03-26 09:24] LABS: ANION GAP 14.2 mmol/L (8-16); CALCIUM 8.7 mg/dL (8.4-10.2); CREATININE, SERUM 3.59 mg/dL (0.57-1.11); POTASSIUM 4.2 mmol/L (3.5-5.1)
[2024-03-26] MEDS ORDERED: ALBUMIN 25% 12.5GM 0.25 GM/ML BTL IV PRN (10:45)
[2024-03-27] VITALS (11 sets, daily range): BP systolic 120–141; BP diastolic 46–70; PULSE 63–81; RESP 15–22; TEMP 97.9–99.1; O2SAT 96–100
[2024-03-28] VITALS (10 sets, daily range): BP systolic 111–152; BP diastolic 42–58; PULSE 64–76; RESP 14–20; TEMP 97.5–98.8; O2SAT 95–100
[2024-03-28] MEDS: INSULIN LISPRO 100 UNIT/1 ML 3ML VIAL SQ SCH (13:12)
[2024-03-28] MEDS: INSULIN GLARGINE 100 UNITS/ML VIAL SC SCH (20:45)
[2024-03-29] VITALS (11 sets, daily range): BP systolic 129–160; BP diastolic 49–62; PULSE 62–72; RESP 16–19; TEMP 97.9–98.9; O2SAT 95–99
[2024-03-29] MEDS ORDERED: SODIUM CHLORIDE 0.9% 250ML 250 ML ONE (21:57)
[2024-03-29] MEDS: SODIUM CHLORIDE 0.9% 250ML 250 ML IV ONE (23:19)
[2024-03-30] VITALS (8 sets, daily range): BP systolic 150–154; BP diastolic 52–56; PULSE 62–75; RESP 16–18; TEMP 97.8–98.6; O2SAT 97–100
[2024-03-30] MEDS ORDERED: HEPARIN SOD (PORCINE) 5,000 UNIT/ML VIAL ONE (00:18)
[2024-03-30] MEDS ORDERED: SODIUM CHLORIDE 0.9% 1000ML 1,000 ML ONE (00:18)
[2024-03-30 06:02] LABS: HEMATOCRIT 30.3 % (34.2-44.1); HEMOGLOBIN 9.6 g/dL (12.0-16.0)
[2024-03-30] MEDS ORDERED: SODIUM CHLORIDE 0.9% 1000ML 2,000 ML IV PRN (06:30)
== END 2024-03-30 12:30 | DRG 193 ==
LOC: ER 14:55 → ERHOLD 16:07 → MED/SURG2 18:13
PROVIDERS: ADMIT Internal Medicine; ATTEND Internal Medicine
PROC: 0JH63XZ Insertion of Tunneled Vascular Access Device into Chest Subcutaneous Tissue and Fascia, Percutaneous Approach (ICD-10-PCS; principal; 2024-03-21)
PROC: 02H633Z Insertion of Infusion Device into Right Atrium, Percutaneous Approach (ICD-10-PCS; 2024-03-21)
PROC: 05HM33Z Insertion of Infusion Device into Right Internal Jugular Vein, Percutaneous Approach (ICD-10-PCS; 2024-03-21)
PROC: 5A1D70Z Performance of Urinary Filtration, Intermittent, Less than 6 Hours Per Day (ICD-10-PCS; 2024-03-21)
PROC: 30233N1 Transfusion of Nonautologous Red Blood Cells into Peripheral Vein, Percutaneous Approach (ICD-10-PCS; 2024-03-23)
PROC: 5A1D70Z Performance of Urinary Filtration, Intermittent, Less than 6 Hours Per Day (ICD-10-PCS; 2024-03-26)
PROC: 30233N1 Transfusion of Nonautologous Red Blood Cells into Peripheral Vein, Percutaneous Approach (ICD-10-PCS; 2024-03-29)
DX: J18.9 Pneumonia, unspecified organism (principal); J96.01 Acute respiratory failure with hypoxia; N18.6 End stage renal disease; I12.0 Hypertensive chronic kidney disease with stage 5 chronic kidney disease or end stage renal disease; N17.9 Acute kidney failure, unspecified; J90 Pleural effusion, not elsewhere classified; I48.91 Unspecified atrial fibrillation; E11.22 Type 2 diabetes mellitus with diabetic chronic kidney disease; E11.649 Type 2 diabetes mellitus with hypoglycemia without coma; Z99.2 Dependence on renal dialysis; D63.1 Anemia in chronic kidney disease; E86.0 Dehydration; E11.42 Type 2 diabetes mellitus with diabetic polyneuropathy; Z79.4 Long term (current) use of insulin; Z79.84 Long term (current) use of oral hypoglycemic drugs; E78.5 Hyperlipidemia, unspecified; N25.89 Other disorders resulting from impaired renal tubular function; R53.81 Other malaise; Z71.3 Dietary counseling and surveillance; Z68.27 Body mass index [BMI] 27.0-27.9, adult; Z90.5 Acquired absence of kidney; Z71.81 Spiritual or religious counseling; Z11.52 Encounter for screening for COVID-19; Z79.899 Other long term (current) drug therapy
CPT/HCPCS: 36415; 36558; 71045; 71046; 71250; 74470; 76770; 76937; 77001; 80048; 80053; 81001; 81050; 82550; 82575; 82607; 82728; 82746; 82948; 83036; 83540; 83735; 83880; 84100; 84156; 84443; 84466; 84484; 85014; 85018; 85025; 85610; 86704; 86705; 86706; 86850; 86900; 86920; 87040; 87071; 87205; 87340; 93005; 94640; 94799; 96372; 99284; J0696; J1644; J1756; J1815; J2003; J2150; J3475; J7030; J7040; J7050; J7070; P9016

== ENCOUNTER 2024-11-02 18:18 | Emergency (ER) | payer MEDICARE ==
[~2024-11-02] VITALS: Ht 154.9 cm; Wt 59.0 kg
[~2024-11-02 18:18] MED LIST changes: +LEVEMIR100 UNIT/1 SC
[2024-11-02] MEDS: DEXAMETHASONE SOD PHOS 10 MG/1 ML VIAL IM STA (19:42)
[2024-11-02] MEDS: KETOROLAC TROMETHAMINE 30 MG/ML VIAL IM STA (19:42)
[2024-11-02] MEDS: SODIUM CHLORIDE 0.9% 1000ML 1,000 ML IV STA (20:23)
[2024-11-02] MEDS: TRAMADOL HCL 50 MG TAB PO STA (21:20)
[2024-11-02] MEDS: ASPIRIN 325 MG TAB PO STA (21:25)
[2024-11-02 21:38] VITALS: PULSE 77; RESP 18; TEMP 98.9; O2SAT 98
== END 2024-11-02 21:45 | disposition home or self-care (01) ==
LOC: ER 18:23
DX: M25.511 Pain in right shoulder (principal); M12.811 Other specific arthropathies, not elsewhere classified, right shoulder; I12.9 Hypertensive chronic kidney disease with stage 1 through stage 4 chronic kidney disease, or unspecified chronic kidney disease; E11.22 Type 2 diabetes mellitus with diabetic chronic kidney disease; N18.9 Chronic kidney disease, unspecified; E78.5 Hyperlipidemia, unspecified; E03.9 Hypothyroidism, unspecified; Z87.442 Personal history of urinary calculi
CPT/HCPCS: 73030; 99284; J1100; J1885